=== PATIENT | female | born 1975 | race Caucasian/White ===

== ENCOUNTER 2018-12-16 09:52 | Outpatient (CLI) | payer BC ==
--- NOTE | 2018-12-16 10:14 | RAD ---
LEFT HAND THREE VIEWS: History: Left hand pain, M79.642; hand and wrist pain following a fall one month ago. FINDINGS/IMPRESSION: Mild degenerative changes. No acute fracture or dislocation or other acute osseous process. POS: [facility]
--- NOTE | 2018-12-16 10:51 | RAD ---
LEFT WRIST 3 VIEWS: Date: 12/16/18 HISTORY: Left wrist pain. M25.532. Left hand and wrist pain following a fall 1 month ago. FINDINGS: Mild degenerative changes. No acute fracture or dislocation. IMPRESSION: Mild degenerative changes without fracture or dislocation. POS: [facility]
== END 2018-12-16 09:53 | disposition home or self-care (01) ==
LOC: SCSRAD 09:52
PROVIDERS: ATTEND Family Medicine
DX: M25.532 Pain in left wrist (principal); M79.642 Pain in left hand; M19.032 Primary osteoarthritis, left wrist; M19.042 Primary osteoarthritis, left hand

== ENCOUNTER 2021-01-16 10:09 | Outpatient (CLI) | payer BC ==
[2021-01-16 11:10] LABS: Hemoglobin 12.5 g/dL (12.0-15.5); Mean Corpuscular HGB CONC 33.7 g/dL (32.0-36.0); Mean Corpuscular Hemoglobin 30.3 pg (27.0-33.0); Mean Corpuscular Volume 89.8 fl (81.6-98.3); Mean Platelet Volume 9.4 fl (7.4-10.4); Platelet Count 474 10x3/uL (150-450); RBC Distribution Width 14.4 % (11.5-14.5); Red Blood Cell (RBC) Count 4.13 10x6/uL (3.90-5.03); White Blood Cell (WBC) Count 4.3 10x3/uL (3.5-10.5)
[2021-01-16 11:34] LABS: PTT 26.3 sec (22.0-33.0); Prothrombin Time 10.6 sec (9.5-12.1)
[2021-01-16 11:38] LABS: Anion Gap 13 mmol/L (10-20); BUN (Urea Nitrogen) 12 mg/dL (7.0-18.7); Calc. Creatinine Clearance 0 mL/min (70-130); Calcium 9.3 mg/dL (7.8-10.44); Carbon Dioxide 26 mmol/L (22-29); Chloride 101 mmol/L (98-107); Glucose 86 mg/dL (70-105); Potassium 4.4 mmol/L (3.5-5.1); Sodium 136 mmol/L (136-145)
[2021-01-16 18:27] LABS: SARS-CoV-2 PCR by NAA Not Detected (NotDetected)
== END 2021-01-16 10:10 | disposition home or self-care (01) ==
LOC: LABBT 10:09
PROVIDERS: ATTEND Surgery
DX: Z01.818 Encounter for other preprocedural examination (principal); M48.062 Spinal stenosis, lumbar region with neurogenic claudication; M54.16 Radiculopathy, lumbar region; Z20.822 Contact with and (suspected) exposure to COVID-19
CPT/HCPCS: 80048; 85027; 85610; 85730; 93005; 93010; U0003; U0005

== ENCOUNTER 2021-01-20 06:40 | Day surgery (SDC) | payer BC ==
[2021-01-19 10:22] VITALS: BMI 36.7
[2021-01-20] MEDS ORDERED: Thrombin 5000 UNITS/5 ML VIAL ONE (08:56)
[2021-01-20] MEDS ORDERED: Fentanyl 100 MCG/2 ML VIAL ONE ×3 (09:18→11:42)
[2021-01-20] MEDS ORDERED: Morphine 2 MG/ML VIAL SLOW IVP PRN (09:28)
[2021-01-20] MEDS ORDERED: traMADol HCl 50 MG TAB PO PRN (09:28)
[2021-01-20] MEDS ORDERED: Acetaminophen/Codeine 30-300mg Tablet PO PRN (09:28)
[2021-01-20] MEDS ORDERED: Acetaminophen 325 MG TAB PO PRN (09:28)
[2021-01-20] MEDS ORDERED: Rocuronium Bromide 10 MG/ML (10ML VIAL) ONE (09:29)
[2021-01-20] MEDS ORDERED: Promethazine 25 MG TAB PO PRN (09:29)
[2021-01-20] MEDS ORDERED: Glycopyrrolate 0.2 MG/ML 5 ML SYRINGE ONE (09:29)
[2021-01-20] MEDS ORDERED: Dexamethasone 20 MG/5 ML VIAL ONE (09:29)
[2021-01-20] MEDS ORDERED: Ondansetron PF 4 MG/2 ML Vial ONE (09:29)
[2021-01-20] MEDS ORDERED: PROPOFOL 200 MG/20 ML VIAL ONE (09:29)
[2021-01-20] MEDS ORDERED: Lidocaine 1% PF 5 ML VIAL ONE (09:29)
[2021-01-20] MEDS ORDERED: Rizatriptan Benzoate 10 MG MLT TAB PO PRN (09:50)
[2021-01-20] MEDS ORDERED: Promethazine HCl 25 MG/ML VIAL SLOW IVP PRN (11:39)
[2021-01-20] MEDS ORDERED: Promethazine HCl 25 MG/ML VIAL IM PRN (11:39)
[2021-01-20] MEDS ORDERED: Ondansetron HCl/PF 4 MG/2 ML Vial IVP PRN (11:39)
[2021-01-20] MEDS: carBAMazepine 200 MG TAB PO SCH ×3 (13:37→20:34)
[2021-01-20] MEDS: HYDROcodone/Acetaminophen 7.5/325 mg Tablet PO PRN ×2 (13:37→20:33)
[2021-01-20] MEDS ORDERED: Diclofenac Sodium 50 MG DR TAB PO SCH (15:00)
[2021-01-20] MEDS ORDERED: Lacosamide 50 mg Tablet PO SCH (15:00)
[2021-01-20] MEDS: Cyclobenzaprine 10 MG TAB PO SCH ×2 (15:56→20:33)
[2021-01-20] MEDS: CEFAZOLIN 2 GM in Premix Bag 1 BAG IVPB SCH (15:56)
[2021-01-20] MEDS: Sodium Chloride 0.9% 1,000 ML IV SCH (17:54)
[2021-01-20] MEDS: Lacosamide 50 mg Tablet PO SCH (20:34)
[2021-01-20] MEDS ORDERED: Atorvastatin Calcium 10 MG TAB PO SCH (21:00)
[2021-01-21] MEDS: CEFAZOLIN 2 GM in Premix Bag 1 BAG IVPB SCH (00:02)
[2021-01-21] MEDS: HYDROcodone/Acetaminophen 7.5/325 mg Tablet PO PRN (02:24)
[2021-01-21] MEDS: Sodium Chloride 0.9% 1,000 ML IV SCH (06:18)
[2021-01-21 08:22] VITALS: BP 113/73; TEMP 98
[2021-01-21] MEDS: Lacosamide 50 mg Tablet PO SCH (08:24)
[2021-01-21] MEDS: Cyclobenzaprine 10 MG TAB PO SCH (08:24)
[2021-01-21] MEDS: carBAMazepine 200 MG TAB PO SCH (08:26)
[2021-01-21] MEDS ORDERED: Cholecalciferol 1,000 UNITS (25 MCG) TAB PO SCH (09:00)
[2021-01-21] MEDS ORDERED: DULoxetine 60 MG CAP PO SCH (09:00)
== END 2021-01-21 10:20 | disposition home or self-care (01) ==
LOC: SDC 06:40 → SURG A 09:28 → SDC 01-21 10:20
PROVIDERS: ATTEND Surgery
PROC: 01NB0ZZ Release Lumbar Nerve, Open Approach (ICD-10-PCS; principal; 2021-01-20)
DX: M25.78 Osteophyte, vertebrae (principal); M54.16 Radiculopathy, lumbar region; M48.062 Spinal stenosis, lumbar region with neurogenic claudication; M54.42 Lumbago with sciatica, left side; M54.41 Lumbago with sciatica, right side; Z79.899 Other long term (current) drug therapy; Z88.6 Allergy status to analgesic agent; Z88.8 Allergy status to other drugs, medicaments and biological substances; Z98.1 Arthrodesis status
CPT/HCPCS: 76000; J0690; J1100; J2405; J2704; J3010; J3370